=== PATIENT | female | born 1980 | race African-American/Black ===

== ENCOUNTER 2017-07-18 11:19 | Emergency (ER) | payer SELFPAY ==
[2017-07-18 11:41] LABS: Bilirubin Negative (Negative); Blood, Urine Large (Negative); Glucose, Urine (Dipstick) Negative (Negative); Ketone, Urine 40 mg/dL (Negative); Nitrite Positive (Negative); Protein, Urine (Dipstick) 100 mg/dL (Neg-Trace)
[2017-07-18 11:53] LABS: Bacteria/HPF 4+ HPF (None Seen)
== END 2017-07-18 12:02 | disposition home or self-care (01) ==
LOC: SCSER 11:19
DX: N10 Acute pyelonephritis (principal)
CPT/HCPCS: 81003; 81015; 81025; 87077; 87086; 87186; 99283

== ENCOUNTER 2017-10-04 21:18 | Emergency (ER) | payer SELFPAY ==
[2017-10-04 21:40] LABS: Bilirubin Negative (Negative); Blood, Urine Moderate (Negative); Clarity CLOUDY (Clear); Glucose, Urine (Dipstick) Negative (Negative); Leukocyte Moderate (Negative); Nitrite Negative (Negative); Protein, Urine (Dipstick) Negative (Neg-Trace); Specific Gravity, Urine 1.019 (1.002-1.036); Urobilinogen 0.2 mg/dL (0.2-1.0); pH, Urine 6.5 (5.0-9.0)
[2017-10-04 21:41] LABS: Hyaline Casts/LPF 0-3 HYALINE CAST LPF (0-3 Hyaline); Pathc Cast-AUWi Flag 0.13 (0-2.49); Squamous Epithelial 0-3 HPF (0-3); WBC/HPF 21-50 HPF (0-3)
[2017-10-04 21:42] LABS: Pregnancy Test - Urine (BHCG) Negative (Negative); Pregu Control Background? CLEAR/WHITE (CLR/WHITE); Pregu Control Bar Appear? YES (CONTROL BAR); Specific Gravity 1.019 (1.002-1.036); Yeast-AUWi Flag 38.6 (0-25.0)
[2017-10-04 21:48] LABS: Bacteria/HPF 3+ HPF (None Seen); Yeast-All Forms None Seen HPF (None Seen)
[2017-10-04 22:19] LABS: #Basophils 0.1 thou/uL (0.0-0.2); #Lymphocytes 2.4 thou/uL (1.20-3.40); #Neutrophils 7.6 thou/uL (1.40-6.50); %Basophils 0.7 % (0.0-1.0); %Eosinophils 0.4 % (0.0-10.0); %Lymphocytes 21.5 % (21.0-51.0); %Monocytes 8.6 % (0.0-10.0); %Neutrophils 68.8 % (42.0-75.0); Hemoglobin 14.8 g/dL (12.0-16.0); Mean Corpuscular HGB CONC 34.1 g/dL (32.0-36.0); Mean Corpuscular Hemoglobin 29.3 pg (27.0-31.0); Mean Corpuscular Volume 85.9 fl (81.0-99.0); Mean Platelet Volume 7.3 fL (7.4-10.4); Platelet Count 307 thou/uL (130-400); RBC Distribution Width 12.9 % (11.5-14.5); Red Blood Cell (RBC) Count 5.06 mill/uL (4.20-5.40)
[2017-10-04 22:40] LABS: ALT (SGPT) 20 U/L (8-55); AST (SGOT) 12 U/L (5-34); Albumin 4.5 g/dL (3.5-5.0); Alkaline Phosphatase 55 U/L (40-150); Anion Gap 13 mmol/L (10-20); BUN (Urea Nitrogen) 7 mg/dL (7.0-18.7); Bilirubin, Total 0.5 mg/dL (0.2-1.2); Calc. Creatinine Clearance 0 mL/min (70-130); Carbon Dioxide 25 mmol/L (22-29); Chloride 101 mmol/L (98-107); Estimated GFR-MDRD Greater than 90; Globulin 3.4 g/dL (2.4-3.5); Glucose 95 mg/dL (70-105); Potassium 3.7 mmol/L (3.5-5.1); Protein, Total 7.9 g/dL (6.0-8.3); Sodium 135 mmol/L (136-145)
[2017-10-04] MEDS ORDERED: Ondansetron HCl/PF 4 MG/2 ML Vial ONE (23:17)
[2017-10-04] MEDS ORDERED: Morphine 4 MG/ML VIAL ONE (23:33)
[2017-10-05] MEDS ORDERED: Ketorolac Tromethamine 30 MG/ML VIAL ONE (00:59)
[2017-10-05] MEDS ORDERED: Ondansetron ODT 4 MG TAB ONE (00:59)
[2017-10-05] MEDS ORDERED: HYDROcodone/Acetaminophen 5/325 mg Tablet ONE (01:01)
[2017-10-05] MEDS ORDERED: Ondansetron HCl/PF 4 MG/2 ML Vial ONE (01:02)
--- NOTE | 2017-10-05 09:23 | CT ---
PRELIMINARY REPORT/[facility]/EMERGENCY AFTER HOURS PROCEDURE: EXAM: CT Abdomen and Pelvis Without Intravenous Contrast CLINICAL HISTORY: 37 years old, female; Pain; Abdominal pain; Generalized TECHNIQUE: Axial computed tomography images of the abdomen and pelvis without intravenous contrast. Coronal reformatted images were created and reviewed. COMPARISON: No relevant prior studies available. FINDINGS: Lower thorax: There is minimal bibasilar atelectatic change or scarring. ABDOMEN: Liver: Unremarkable. Gallbladder and bile ducts: Unremarkable. No calcified stones. No ductal dilation. Pancreas: Unremarkable. No ductal dilation. Spleen: Unremarkable. No splenomegaly. Adrenals: Unremarkable. No mass. Kidneys and ureters: There is nonobstructive bilateral nephrolithiasis. Stomach and bowel: Unremarkable. No obstruction. No mucosal thickening. Appendix: The appendix is unremarkable and seen best on axial image 62 of series 2. PELVIS: Bladder: Unremarkable. No stones. Reproductive: There is a partly fat density cystic lesion in the midline of the upper pelvis measurin g a maximum of 4.3 cm, suspicious for right or left ovarian dermoid cyst. ABDOMEN and PELVIS: Intraperitoneal space: Unremarkable. No free air. No significant fluid collection. Bones/joints: No acute fracture. No dislocation. Soft tissues: Unremarkable. Vasculature: Unremarkable. No abdominal aortic aneurysm. Lymph nodes: Unremarkable. No enlarged lymph nodes. Tubes, lines and devices: There are bilateral Essure devices of the uterus and fallopian tubes. IMPRESSION: 1. There is nonobstructive bilateral nephrolithiasis. 2. There is a partly fat density cystic lesion in the midline of the upper pelvis measuring a maximum of 4.3 cm, suspicious for right or left ovarian dermoid cyst. Thank you for allowing us to participate in the care of your patient. Dictated and Authenticated by: Kong Ryder MD 10/05/2017 2:13 AM Central Time ([place] & [place]) FINAL REPORT CT ABDOMEN AND PELVIS WITHOUT CONTRAST: There are nonobstructing renal calculi. Bowel loops appear normal. Appendix is normal. Images through the pelvis reveal a prominent uterus. There are radiopaque Essure devices within the fallopian tubes as noted on preliminary report. There is a mixed-density mass in the upper pelvis just anterior and superior to the uterus measuring 4-5 cm as noted on preliminary report. This does contain some fat density. There is evidence of a t iny associated calcification. A dermoid is a consideration. Recommend [employer] consult and laparoscopy. I am in agreement with the preliminary report. POS: [facility]
== END 2017-10-05 02:48 | disposition home or self-care (01) ==
LOC: ERS 21:18
DX: N12 Tubulo-interstitial nephritis, not specified as acute or chronic (principal); E86.0 Dehydration
CPT/HCPCS: 36415; 74176; 80053; 81003; 81015; 81025; 83605; 85025; 87040; 87077; 87086; 87186; 96361; 96374; 96375; 96376; J0696; J1885; J2270; J2405; Q0162

== ENCOUNTER 2018-01-28 04:40 | Emergency (ER) | payer SELFPAY ==
[2018-01-28 05:17] LABS: #Basophils 0.1 thou/uL (0.0-0.2); #Eosinphils 0.2 thou/uL (0.0-0.7); #Lymphocytes 2.4 thou/uL (1.20-3.40); #Monocytes 0.7 thou/uL (0.11-0.59); #Neutrophils 4.3 thou/uL (1.40-6.50); %Basophils 1.1 % (0.0-1.0); %Eosinophils 2.6 % (0.0-10.0); %Lymphocytes 31.5 % (21.0-51.0); %Monocytes 9.6 % (0.0-10.0); %Neutrophils 55.3 % (42.0-75.0); Hemoglobin 12.3 g/dL (12.0-16.0); Mean Corpuscular Hemoglobin 27.9 pg (27.0-31.0); Mean Corpuscular Volume 84.5 fl (81.0-99.0); Mean Platelet Volume 7.4 fL (7.4-10.4); Platelet Count 308 thou/uL (130-400); RBC Distribution Width 13.1 % (11.5-14.5); Red Blood Cell (RBC) Count 4.42 mill/uL (4.20-5.40); White Blood Cell (WBC) Count 7.7 thou/uL (4.8-10.8)
[2018-01-28 05:19] LABS: ALT (SGPT) 20 U/L (8-55); AST (SGOT) 12 U/L (5-34); Albumin 3.8 g/dL (3.5-5.0); Alkaline Phosphatase 50 U/L (40-150); Anion Gap 11 mmol/L (10-20); BUN (Urea Nitrogen) 11 mg/dL (7.0-18.7); Bilirubin, Total 0.2 mg/dL (0.2-1.2); Calc. Creatinine Clearance 0 mL/min (70-130); Calcium 8.5 mg/dL (7.8-10.44); Carbon Dioxide 26 mmol/L (22-29); Chloride 106 mmol/L (98-107); Estimated GFR-MDRD Greater than 90; Globulin 2.5 g/dL (2.4-3.5); Glucose 110 mg/dL (70-105); Potassium 3.7 mmol/L (3.5-5.1); Protein, Total 6.3 g/dL (6.0-8.3); Sodium 139 mmol/L (136-145)
[2018-01-28 05:21] LABS: Bilirubin Negative (Negative); Blood, Urine Small (Negative); Clarity CLOUDY (Clear); Glucose, Urine (Dipstick) Negative (Negative); Leukocyte Small (Negative); Nitrite Negative (Negative); Protein, Urine (Dipstick) Negative (Neg-Trace); Specific Gravity, Urine 1.028 (1.002-1.036); Urobilinogen 0.2 mg/dL (0.2-1.0); pH, Urine 6.5 (5.0-9.0)
[2018-01-28 05:23] LABS: Bacteria/HPF None Seen HPF (None Seen); Hyaline Casts/LPF 0-3 HYALINE CAST LPF (0-3 Hyaline); Pathc Cast-AUWi Flag 0.29 (0-2.49); WBC/HPF 21-50 HPF (0-3)
[2018-01-28 05:26] LABS: Pregnancy Test - Urine (BHCG) Negative (Negative); Pregu Control Background? CLEAR/WHITE (CLR/WHITE); Pregu Control Bar Appear? YES (CONTROL BAR); Specific Gravity 1.028 (1.002-1.036)
== END 2018-01-28 07:58 | disposition home or self-care (01) ==
LOC: ERS 04:40
DX: N39.0 Urinary tract infection, site not specified (principal); R10.13 Epigastric pain; I10 Essential (primary) hypertension
CPT/HCPCS: 36415; 80053; 81003; 81015; 81025; 83690; 85025; 99284

== ENCOUNTER 2019-08-16 18:06 | Emergency (ER) | payer BC, SELFPAY ==
[2019-08-16] MEDS ORDERED: Ketorolac Tromethamine 30 MG/ML VIAL ONE (18:41)
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
== END 2019-08-16 20:10 | disposition home or self-care (01) ==
LOC: SCSER 18:06
DX: M25.512 Pain in left shoulder (principal); M79.672 Pain in left foot
CPT/HCPCS: 96372; J1885

== ENCOUNTER 2021-01-03 08:22 | Emergency (ER) | payer OTHER ==
[2021-01-03] MEDS ORDERED: Iopamidol-370 76% 500 ML 1 ML ONE (08:25)
[2021-01-03] MEDS ORDERED: Ondansetron PF 4 MG/2 ML Vial ONE (09:01)
[2021-01-03] MEDS ORDERED: Morphine 4 MG/ML VIAL ONE (09:01)
[2021-01-03 09:32] LABS: #Basophils 0.1 thou/uL (0.0-0.2); #Eosinphils 0.2 thou/uL (0.0-0.7); #Lymphocytes 2.6 thou/uL (1.20-3.40); #Monocytes 0.8 thou/uL (0.11-0.59); #Neutrophils 5.5 thou/uL (1.40-6.50); %Basophils 0.6 % (0.0-1.0); %Eosinophils 2.1 % (0.0-10.0); %Lymphocytes 28.1 % (21.0-51.0); %Monocytes 8.9 % (0.0-10.0); %Neutrophils 60.3 % (42.0-75.0); Hemoglobin 13.1 g/dL (12.0-16.0); Mean Corpuscular HGB CONC 32.6 g/dL (32.0-36.0); Mean Corpuscular Hemoglobin 27.3 pg (27.0-31.0); Mean Corpuscular Volume 83.8 fL (78.0-98.0); Mean Platelet Volume 7.2 fL (7.4-10.4); Platelet Count 346 thou/uL (130-400); RBC Distribution Width 12.9 % (11.5-14.5); Red Blood Cell (RBC) Count 4.81 mill/uL (4.20-5.40); White Blood Cell (WBC) Count 9.1 thou/uL (4.8-10.8)
[2021-01-03 09:41] LABS: BHCG - Serum Negative (NEGATIVE); Pregs Control Background? CLEAR/WHITE (CLR/WHITE); Pregs Control Bar Appear? YES (CONTROL BAR)
[2021-01-03 09:53] LABS: ALT (SGPT) 26 U/L (8-55); AST (SGOT) 13 U/L (5-34); Albumin 4.1 g/dL (3.5-5.0); Alkaline Phosphatase 59 U/L (40-110); Anion Gap 13 mmol/L (10-20); BUN (Urea Nitrogen) 16 mg/dL (7.0-18.7); Bilirubin, Total 0.3 mg/dL (0.2-1.2); Calc. Creatinine Clearance 0 mL/min (70-130); Calcium 8.9 mg/dL (7.8-10.44); Carbon Dioxide 24 mmol/L (22-29); Chloride 105 mmol/L (98-107); Globulin 3.2 g/dL (2.4-3.5); Glucose 96 mg/dL (70-105); Lipase 36 U/L (8-78); Potassium 3.5 mmol/L (3.5-5.1); Protein, Total 7.3 g/dL (6.0-8.3); Sodium 138 mmol/L (136-145)
[2021-01-03 10:59] LABS: Bilirubin Negative (Negative); Blood, Urine 3+ (Negative); Clarity Turbid (Clear); Glucose, Urine (Dipstick) Normal (Negative); Ketone, Urine Negative (Negative); Leukocyte 250 Leu/uL (Negative); Nitrite Negative (Negative); Protein, Urine (Dipstick) 20 mg/dL (Neg-Trace); RBC/HPF Greater than 50 HPF (0-3); Specific Gravity, Urine 1.015 (1.002-1.036); Squamous Epithelial None Seen HPF (0-3); Urobilinogen Normal mg/dL (Less than 2)
[2021-01-03 11:00] LABS: Bacteria/HPF Rare-Few HPF (None Seen); WBC/HPF 21-50 HPF (0-3)
[2021-01-03] MEDS ORDERED: Cyclobenzaprine 10 MG TAB ONE (11:40)
[2021-01-03] MEDS ORDERED: Ketorolac Tromethamine 30 MG/ML VIAL ONE (11:40)
== END 2021-01-03 11:48 | disposition home or self-care (01) ==
LOC: ERS 08:22
DX: N30.00 Acute cystitis without hematuria (principal); N83.201 Unspecified ovarian cyst, right side; N94.6 Dysmenorrhea, unspecified
CPT/HCPCS: 74177; 80053; 81003; 81015; 83605; 83690; 84703; 85025; 87086; 96374; 96375; J1885; J2270; J2405; Q9967

== ENCOUNTER 2021-01-31 10:45 | Outpatient (CLI) | payer OTHER | END 2021-01-31 10:46 | disposition home or self-care (01) | LOC: BICMAMMO 10:45 | PROVIDERS: ATTEND Physician Assistant | DX: Z12.31 Encounter for screening mammogram for malignant neoplasm of breast (principal) | CPT/HCPCS: 77063; 77067 ==

== ENCOUNTER 2021-06-02 09:24 | Day surgery (SDC) | payer OTHER ==
[2021-05-31 15:12] VITALS: BMI 30.7
[2021-06-02] MEDS ORDERED: Heparin 5,000 UNITS/ML VIAL ONE (10:13)
[2021-06-02] MEDS ORDERED: Bupivacaine 0.25% HCL 30 ML VIAL ONE ×2 (10:39→11:19)
[2021-06-02] MEDS ORDERED: Gentamicin 80 MG/2 ML VIAL ONE (10:39)
[2021-06-02] MEDS ORDERED: EPINEPHrine 1 MG/ML AMP ONE (10:39)
[2021-06-02] MEDS ORDERED: Lidocaine 1% (PF) 30 ML VIAL ONE (10:39)
[2021-06-02] MEDS ORDERED: Midazolam HCl 2 mg/2 ml Vial ONE (10:49)
[2021-06-02] MEDS ORDERED: Fentanyl 250 MCG/5 ML VIAL ONE (10:49)
[2021-06-02] MEDS ORDERED: PROPOFOL 200 MG/20 ML VIAL ONE (11:12)
[2021-06-02] MEDS ORDERED: Dexamethasone 20 MG/5 ML VIAL ONE (11:12)
[2021-06-02] MEDS ORDERED: Ondansetron PF 4 MG/2 ML Vial ONE (11:12)
[2021-06-02] MEDS ORDERED: Ketorolac Tromethamine 30 MG/ML VIAL ONE (11:12)
[2021-06-02] MEDS ORDERED: PHENYLEPHRINE-NS 100 MCG/ML 10 ML SYRINGE ONE (11:12)
[2021-06-02] MEDS ORDERED: Lidocaine 1% PF 5 ML VIAL ONE (11:12)
[2021-06-02] MEDS ORDERED: Sodium Chloride 0.9% 10 ML ONE (11:37)
[2021-06-02] MEDS ORDERED: Fentanyl 100 MCG/2 ML VIAL ONE ×3 (15:42→16:26)
[2021-06-02] MEDS ORDERED: Morphine 4 MG/ML VIAL ONE (16:31)
== END 2021-06-02 18:05 | disposition home or self-care (01) ==
LOC: SDC 09:24
PROVIDERS: ATTEND Plastic Surgery
PROC: 0HBV0ZZ Excision of Bilateral Breast, Open Approach (ICD-10-PCS; principal; 2021-06-02)
DX: N62 Hypertrophy of breast (principal)
CPT/HCPCS: 88305; J0171; J0690; J1100; J1580; J1644; J1885; J2001; J2250; J2270; J2405; J2704; J3010; J3370; S0020

== ENCOUNTER 2022-12-15 02:03 | Emergency (ER) | payer BC, OTHER, SELFPAY ==
[2022-12-15] MEDS ORDERED: Fluorescein Opthalmic Strip ONE (02:33)
[2022-12-15] MEDS ORDERED: Proparacaine 0.5% Opth 15 ML BOT ONE (02:33)
== END 2022-12-15 02:58 | disposition home or self-care (01) ==
LOC: ERS 02:03
DX: S05.02XA Injury of conjunctiva and corneal abrasion without foreign body, left eye, initial encounter (principal); S05.01XA Injury of conjunctiva and corneal abrasion without foreign body, right eye, initial encounter
CPT/HCPCS: 99283

== ENCOUNTER 2023-12-18 10:49 | Emergency (ER) | payer BC ==
[2023-12-18] MEDS ORDERED: diphenhydrAMINE 50 MG/ML VIAL ONE (11:57)
[2023-12-18] MEDS ORDERED: Ketorolac Tromethamine 30 MG (1 mL) VIAL ONE (11:57)
[2023-12-18] MEDS ORDERED: Metoclopramide HCl 10 MG (2 mL) VIAL ONE (11:58)
== END 2023-12-18 13:14 | disposition home or self-care (01) ==
LOC: ERS 10:49
DX: G43.909 Migraine, unspecified, not intractable, without status migrainosus (principal); I10 Essential (primary) hypertension; Z55.6 Problems related to health literacy
CPT/HCPCS: 96374; 96375; J1200; J1885; J2765